=== PATIENT | female | born 1930 | race Caucasian/White ===

== ENCOUNTER → 2016-10-30 | Outpatient (CLI) | payer MEDICARE, BC ==
[~2016-10-30] MED LIST: AMOXICILLIN 8751 TAB PO; APRESOLINE 25MG25 MG PO; ASPIRIN 81M81 MG/TA2 PO; BYSTOLIC5 MG PO; CALCIUM + D 6001 TA1 PO; COREG12.5 MG PO; COZAAR 50MG50 MG/TAB PO; LASIX 20MG TABL20 MG PO; LOTENSIN20 MG PO; LUTEIN6 MG; MULTIVITAMIN1 CTB PO; NORCO 325 MG-51 TAB PO; NORVASC 5MG5 MG/TAB PO; OCUVITE1 TA1 PO; OMEGA-3 FISH1200 MG PO; PHENERGAN W/CO120 M1 PO; PROMETHAZINE V473 M2 PO; TENORMIN 2525 MG/TAB PO; ZOCOR 20MG20 MG PO
== END ==
LOC: MC.RAD 08:58
DX: Z12.31 Encounter for screening mammogram for malignant neoplasm of breast (principal); Z85.3 Personal history of malignant neoplasm of breast; Z90.12 Acquired absence of left breast and nipple
CPT/HCPCS: G0202

== ENCOUNTER 2016-11-18 20:54 | Emergency (ER) | payer MEDICARE, BC ==
[~2016-11-18] VITALS: Ht 160 cm; Wt 60.0 kg
[~2016-11-18 20:54] MED LIST changes: -AMOXICILLIN 8751 TAB PO; -APRESOLINE 25MG25 MG PO; -COREG12.5 MG PO; -COZAAR 50MG50 MG/TAB PO; -LUTEIN6 MG; -PHENERGAN W/CO120 M1 PO; -PROMETHAZINE V473 M2 PO
[2016-11-18 20:57] VITALS: TEMP 97
[2016-11-18 22:15] LABS: BASO # 0.1 (0.0-0.2); BASO % 0.7 % (0.0-2.0); EOS # 0.4 (0.0-0.7); EOS % 3.8 % (0-4.0); GRAN # 5.8 (1.4-6.5); GRAN % 61.8 % (42.2-75.2); LYMPH # 2.3 (1.2-3.4); LYMPH % 24.6 % (20.0-51.0); MEAN CELL VOLUME 90 fl (80.0-100.0); MEAN CORPUSCULAR HGB CONC 33 g/dl (33.0-37.0); MONO # 0.8 (0.1-0.6); MONO % 8.9 % (1.7-9.3); PLATELET COUNT 408 K/mm3 (130-400); RED BLOOD COUNT 3.73 M/mm3 (4.10-5.30); WHITE BLOOD COUNT 9.4 K/mm3 (4.8-10.8)
[2016-11-18 22:16] LABS: HEMATOCRIT 33.7 % (37.0-47.0); MEAN CORPUSCULAR HEMOGLOBIN 29 pg (27.0-31.0)
[2016-11-18] MEDS ORDERED: APRESOLINE 25MG25 MG PO (22:20)
[2016-11-18] MEDS ORDERED: COZAAR 50MG50 MG/TAB PO (22:20)
[2016-11-18] MEDS ORDERED: COREG12.5 MG PO (22:21)
[2016-11-18] MEDS ORDERED: LASIX 20MG TABL20 MG PO (22:21)
[2016-11-18 22:24] LABS: ADJUSTED CALCIUM 9.7 mg/dL (8.4-10.2); ALBUMIN 4.1 gm/dL (3.5-5.0); BILIRUBIN,TOTAL 0.6 mg/dL (0.0-1.0); CALCIUM 9.8 mg/dL (8.4-10.2); CREATININE, serum 1.43 mg/dL (0.52-1.25); POTASSIUM 4.6 mmol/L (3.4-5.0); TOTAL PROTEIN 7.7 gm/dL (6.4-8.2)
[2016-11-18] MEDS ORDERED: NORCO 325 MG-51 TAB PO (23:29)
[2016-11-18 23:56] VITALS: BP 162/64; PULSE 57
== END 2016-11-18 23:56 | disposition home or self-care (01) ==
LOC: COL.ER 20:54
PROVIDERS: Emergency Medicine
DX: S22.41XA Multiple fractures of ribs, right side, initial encounter for closed fracture (principal); W19.XXXA Unspecified fall, initial encounter; Y92.009 Unspecified place in unspecified non-institutional (private) residence as the place of occurrence of the external cause; I10 Essential (primary) hypertension; N19 Unspecified kidney failure
CPT/HCPCS: J7040; Q9967

== ENCOUNTER 2016-11-29 11:05 | Emergency (ER) | payer MEDICARE, BC ==
[~2016-11-29] VITALS: Ht 160 cm; Wt 61.4 kg
[~2016-11-29 11:05] MED LIST changes: +APRESOLINE 25MG25 MG PO; +COREG12.5 MG PO; +COZAAR 50MG50 MG/TAB PO
[2016-11-29 11:25] VITALS: TEMP 98.3
[2016-11-29 12:36] LABS: BASO # 0.1 (0.0-0.2); BASO % 0.5 % (0.0-2.0); EOS # 0.2 (0.0-0.7); EOS % 1.3 % (0-4.0); GRAN # 8.7 (1.4-6.5); GRAN % 71.7 % (42.2-75.2); HEMATOCRIT 33.8 % (37.0-47.0); HEMOGLOBIN 11.1 g/dl (12.5-16.0); LYMPH # 1.9 (1.2-3.4); LYMPH % 15.7 % (20.0-51.0); MEAN CELL VOLUME 90 fl (80.0-100.0); MEAN CORPUSCULAR HEMOGLOBIN 29 pg (27.0-31.0); MEAN CORPUSCULAR HGB CONC 33 g/dl (33.0-37.0); MEAN PLATELET VOLUME 8.6 fl (7.4-10.4); MONO # 1.3 (0.1-0.6); MONO % 10.5 % (1.7-9.3); PLATELET COUNT 493 K/mm3 (130-400); RED BLOOD COUNT 3.77 M/mm3 (4.10-5.30); REDCELL DISTRIBUTION WIDTH-CV 12.9 % (11.5-14.5); WHITE BLOOD COUNT 12.1 K/mm3 (4.8-10.8)
[2016-11-29 12:39] LABS: PH 6 (5-8); SQUAMOUS EPITHELIAL None Seen /hpf; URINE APPEARANCE Clear; URINE BACTERIA None Seen /hpf; URINE BILIRUBIN Negative (NEGATIVE); URINE BLOOD Negative (NEGATIVE); URINE COLOR Yellow; URINE GLUCOSE Negative (NEGATIVE); URINE KETONE Negative (NEGATIVE); URINE RBC 0-2 /hpf; URINE UROBILINOGEN Negative (NEGATIVE); URINE WBC 0-2 /hpf
[2016-11-29 12:49] LABS: ADJUSTED CALCIUM 10.2 mg/dL (8.4-10.2); ALBUMIN 4.3 gm/dL (3.5-5.0); BILIRUBIN,TOTAL 0.8 mg/dL (0.0-1.0); C-REACTIVE PROTEIN 3.5 mg/dL (0.0-0.9); CALCIUM 10.4 mg/dL (8.4-10.2); CREATININE, serum 1.45 mg/dL (0.52-1.25); POTASSIUM 4.2 mmol/L (3.4-5.0); TOTAL PROTEIN 8.3 gm/dL (6.4-8.2)
[2016-11-29 13:23] VITALS: BP 171/64; PULSE 68
== END 2016-11-29 13:34 | disposition home or self-care (01) ==
LOC: COL.ER 11:05
PROVIDERS: Emergency Medicine
DX: K59.00 Constipation, unspecified (principal); I10 Essential (primary) hypertension

== ENCOUNTER 2017-03-27 07:25 | Emergency (ER) | payer MEDICARE, BC ==
[~2017-03-27] VITALS: Ht 160 cm; Wt 59.1 kg
[2017-03-27 07:28] VITALS: BP 141/61; TEMP 99.4
[2017-03-27] MEDS ORDERED: LUTEIN6 MG (08:00)
[2017-03-27] MEDS ORDERED: PROMETHAZINE V473 M2 PO (08:03)
[2017-03-27] MEDS ORDERED: AMOXICILLIN 8751 TAB PO (08:03)
[2017-03-27] MEDS ORDERED: PHENERGAN W/CO120 M1 PO (08:19)
[2017-03-27 09:01] VITALS: PULSE 65
== END 2017-03-27 09:00 | disposition home or self-care (01) ==
LOC: COL.ER 07:25
DX: J32.9 Chronic sinusitis, unspecified (principal); I10 Essential (primary) hypertension; Z79.82 Long term (current) use of aspirin; Z85.3 Personal history of malignant neoplasm of breast; Z85.6 Personal history of leukemia; Z87.448 Personal history of other diseases of urinary system; Z90.12 Acquired absence of left breast and nipple

== ENCOUNTER → 2017-12-15 | Outpatient (CLI) | payer MEDICARE, BC ==
[~2017-12-15] MED LIST changes: +AMOXICILLIN 8751 TAB PO; +LUTEIN6 MG; +PHENERGAN W/CO120 M1 PO; +PROMETHAZINE V473 M2 PO
== END ==
LOC: MC.RAD 09:00
DX: Z12.31 Encounter for screening mammogram for malignant neoplasm of breast (principal)

== ENCOUNTER 2018-04-27 12:11 | Observation (INO) | payer MEDICARE, BC ==
[~2018-04-27] VITALS: Ht 160 cm; Wt 58.7 kg
[~2018-04-27 12:11] MED LIST changes: -LUTEIN6 MG; +LUTEIN6 MG PO
[2018-04-27 12:41] LABS: BASO # 0.1 (0.0-0.2); BASO % 0.5 % (0.0-2.0); EOS # 0.2 (0.0-0.7); EOS % 1.5 % (0-4.0); GRAN # 9.9 (1.4-6.5); GRAN % 76.4 % (42.2-75.2); HEMOGLOBIN 11.1 g/dl (12.5-16.0); LYMPH # 1.9 (1.2-3.4); LYMPH % 14.3 % (20.0-51.0); MEAN CELL VOLUME 90 fl (80.0-100.0); MEAN CORPUSCULAR HEMOGLOBIN 30 pg (27.0-31.0); MEAN CORPUSCULAR HGB CONC 34 g/dl (33.0-37.0); MEAN PLATELET VOLUME 9.1 fl (7.4-10.4); MONO # 0.9 (0.1-0.6); MONO % 6.6 % (1.7-9.3); PLATELET COUNT 370 K/mm3 (130-400); RED BLOOD COUNT 3.67 M/mm3 (4.10-5.30); REDCELL DISTRIBUTION WIDTH-CV 13.1 % (11.5-14.5)
[2018-04-27 12:42] LABS: HEMATOCRIT 33.1 % (37.0-47.0)
[2018-04-27 12:48] VITALS: BP 163/58; PULSE 55
[2018-04-27 12:50] LABS: ALBUMIN 4.1 gm/dL (3.5-5.0); BILIRUBIN,TOTAL 0.4 mg/dL (0.0-1.0); CALCIUM 9.5 mg/dL (8.4-10.2); CREATININE, serum 1.44 mg/dL (0.52-1.25); POTASSIUM 4.6 mmol/L (3.4-5.0); TOTAL PROTEIN 7.6 gm/dL (6.4-8.2)
[2018-04-27 13:07] LABS: TROPONIN-I 0.021 ng/mL (0.000-0.034)
[2018-04-27] MEDS ORDERED: CENTRUM SILVER1 CTB PO (14:06)
[2018-04-27] MEDS ORDERED: REFRESH TEARS 330 ML OU (14:07)
[2018-04-27 14:32] LABS: COLLECTION METHOD CLEAN CATCH
[2018-04-27 14:42] LABS: MUCOUS Present /lpf; PH 5 (5-8); SQUAMOUS EPITHELIAL None Seen /hpf; URINE APPEARANCE Clear; URINE BACTERIA None Seen /hpf; URINE BILIRUBIN Negative (NEGATIVE); URINE BLOOD Negative (NEGATIVE); URINE COLOR Straw; URINE GLUCOSE Negative (NEGATIVE); URINE KETONE Negative (NEGATIVE); URINE LEUKOCYTE ESTERASE Negative (NEGATIVE); URINE NITRATE Negative (NEGATIVE); URINE PROTEIN(semi-quant) Negative (NEGATIVE); URINE RBC 0-2 /hpf; URINE UROBILINOGEN Negative (NEGATIVE)
[2018-04-27 15:12] VITALS: BP 149/54; PULSE 67; TEMP 97.8
[2018-04-27 18:30] VITALS: BP 146/51; BP 157/54; BP 166/55; PULSE 74; PULSE 78; PULSE 83
[2018-04-27 19:39] VITALS: BP 113/71; PULSE 69; TEMP 98.4
[2018-04-27 23:50] VITALS: BP 151/40; PULSE 81; TEMP 98.4
[2018-04-28 03:58] VITALS: BP 149/41; PULSE 76; TEMP 99
[2018-04-28 06:53] LABS: BASO % 0.4 % (0.0-2.0); EOS # 0.2 (0.0-0.7); EOS % 1.9 % (0-4.0); GRAN # 8.3 (1.4-6.5); LYMPH # 1.3 (1.2-3.4); LYMPH % 11.7 % (20.0-51.0); MEAN CELL VOLUME 90 fl (80.0-100.0); MEAN CORPUSCULAR HGB CONC 34 g/dl (33.0-37.0); MEAN PLATELET VOLUME 9.6 fl (7.4-10.4); MONO # 0.9 (0.1-0.6); MONO % 8.6 % (1.7-9.3); PLATELET COUNT 315 K/mm3 (130-400)
[2018-04-28 07:00] LABS: HEMATOCRIT 28.9 % (37.0-47.0); HEMOGLOBIN 9.7 g/dl (12.5-16.0); MEAN CORPUSCULAR HEMOGLOBIN 30 pg (27.0-31.0)
[2018-04-28 07:08] LABS: CALCIUM 8.7 mg/dL (8.4-10.2); CREATININE, serum 1.2 mg/dL (0.52-1.25); POTASSIUM 4.1 mmol/L (3.4-5.0)
[2018-04-28 07:18] LABS: TROPONIN-I 0.088 ng/mL (0.000-0.034)
[2018-04-28 07:37] VITALS: BP 118/47; PULSE 77; TEMP 99.3
[2018-04-28 11:43] VITALS: BP 161/40; PULSE 68; TEMP 99.3
[2018-04-28] MEDS ORDERED: COREG 6.256.25 MG/TA PO (13:00)
[2018-04-28 15:06] VITALS: BP 161/40; PULSE 68; TEMP 99.3
== END 2018-04-28 15:30 ==
LOC: COL.ER 12:11 → MEDICAL 13:43
PROVIDERS: Emergency Medicine; Nurse Practitioner Family; Physician Assistant
DX: R55 Syncope and collapse (principal); I12.9 Hypertensive chronic kidney disease with stage 1 through stage 4 chronic kidney disease, or unspecified chronic kidney disease; N18.3 Chronic kidney disease, stage 3 (moderate); D63.1 Anemia in chronic kidney disease; R79.89 Other specified abnormal findings of blood chemistry; R00.1 Bradycardia, unspecified; S32.039A Unspecified fracture of third lumbar vertebra, initial encounter for closed fracture; D72.829 Elevated white blood cell count, unspecified; G31.9 Degenerative disease of nervous system, unspecified; W18.30XA Fall on same level, unspecified, initial encounter; Y93.01 Activity, walking, marching and hiking; Y92.198 Other place in other specified residential institution as the place of occurrence of the external cause; Z79.82 Long term (current) use of aspirin; Z79.899 Other long term (current) drug therapy; Z80.8 Family history of malignant neoplasm of other organs or systems; I34.0 Nonrheumatic mitral (valve) insufficiency
CPT/HCPCS: G0378; G8978-GP; G8979-GP; G8987-GO; G8988-GO; J1644; J2270; J7030